=== PATIENT | female | born 1945 | race Caucasian/White ===

== ENCOUNTER 2017-10-08 14:42 | Emergency (ER) | payer MEDICAID, MEDICARE ==
[~2017-10-08] VITALS: Ht 157.5 cm; Wt 56.6 kg
[2017-10-08 15:27] LABS: BASOPHILS # (AUTO) 0.03 x10^3/uL (0-0.1); BASOPHILS % (AUTO) 0 % (0-1); EOSINOPHILS # (AUTO) 0.02 x10^3/uL (0-0.4); EOSINOPHILS % (AUTO) 0 % (1-7); LYMPHOCYTES # (AUTO) 0.88 x10^3/uL (1-3.4); LYMPHOCYTES % (AUTO) 13 % (22-44); MD NO; MEAN CORPUSCULAR HEMOGLOBIN 31.7 pg (27.0-34.8); MEAN CORPUSCULAR HGB CONC 33.8 g/dL (32.4-35.8); MEAN CORPUSCULAR VOLUME 93.8 fL (80-100); MEAN PLATELET VOLUME 8.6 fL (7.4-10.4); MONOCYTES # (AUTO) 0.43 x10^3/uL (0.2-0.8); MONOCYTES % (AUTO) 6 % (2-9); NEUTROPHILS # (AUTO) 5.55 x10^3/uL (1.8-6.8); NEUTROPHILS % (AUTO) 80 % (42-75); PLATELET COUNT 279 x10^3/uL (130-400); RED BLOOD COUNT 3.29 x10^6/uL (3.82-5.3); RED CELL DISTRIBUTION WIDTH 16.1 % (9.6-15.2)
[2017-10-08] MEDS ORDERED: SODIUM CHLORIDE FLUSH 10ML SYR IVF ONE (15:30)
[2017-10-08 15:37] LABS: ALBUMIN 3.5 g/dL (3.4-5.0); ANION GAP 7 mmol/L (5-15); CALCIUM 9.8 mg/dL (8.5-10.1); CHLORIDE 106 mmol/L (98-107); CREATININE 0.93 mg/dL (0.55-1.02)
[2017-10-08] MEDS ORDERED: FUROSEMIDE 20 MG/2 ML IV ONE (17:30)
[2017-10-08] MEDS ORDERED: CLINDAMYCIN PMX 600MG/50ML 50 ML IV ONE (17:30)
[2017-10-08 17:41] LABS: ALBUMIN 3.5 g/dL (3.4-5.0); BILIRUBIN, DIRECT 0.2 mg/dL (0.1-0.2)
[2017-10-08 17:43] LABS: BILIRUBIN,INDIRECT 0.3 mg/dL (0.0-2.0); BILIRUBIN,TOTAL 0.5 mg/dL (0.2-1.0); TOTAL PROTEIN 6.7 g/dL (6.4-8.2)
[2017-10-08] MEDS ORDERED: CLINDAMYCIN PMX 600MG/50ML 50 ML ONE (18:07)
[2017-10-08] MEDS ORDERED: FUROSEMIDE 20 MG/2 ML ONE (18:07)
[2017-10-08 18:18] VITALS: BP 126/69
[2017-10-08 18:44] LABS: MICROSCOPIC AUTO
[2017-10-08 18:50] LABS: CULTURE INDICATED? YES
[2017-10-08] MEDS ORDERED: BACITRACIN ZINC OINT 500U/GM, 0.9 GM ONE (19:55)
== END 2017-10-08 21:01 | disposition home or self-care (01) ==
LOC: ED 19:50
DX: I87.2 Venous insufficiency (chronic) (peripheral) (principal); N30.90 Cystitis, unspecified without hematuria; L03.116 Cellulitis of left lower limb
CPT/HCPCS: 36415; 71046; 80048; 80076; 81001; 82040; 83880; 85025; 85730; 87086; 93005; 93971; 96365; 96375; 99284; J1940